=== PATIENT | male | born 1995 | race Caucasian/White ===

== ENCOUNTER 2016-08-12 21:11 | Emergency (ER) | payer OTHER ==
[~2016-08-12] VITALS: Ht 180.3 cm; Wt 131.7 kg
[~2016-08-12 21:11] MED LIST: DEXILANT60 MG PO; QUETIAPINE FUMA50 MG; SERTRALINE HCL100 MG PO; SINGULAIR10 MG PO; ZYRTEC10 M3 PO
[2016-08-12 22:04] LABS: HEMATOCRIT 47.4 % (38.0-50.0); MCH 26.6 PG (29.0-34.0); MCHC 32.9 G/DL (30.0-36.0); MCV 80.7 FL (86-99); MEAN PLAT.VOLUME 9.3 uM^3 (9.0-12.4); PLATELET COUNT 411 K/uL (156-360); RBC DIS.WIDTH-CV 12.1 % (11.8-14.6); RBC DIS.WIDTH-SD 35.3 % (39-53); RED BLOOD COUNT 5.87 M/uL (4.00-5.50); WHITE BLOOD COUNT 12.4 K/uL (4.1-10.2)
[2016-08-12 22:14] LABS: CHLORIDE 106 mEq/L (99-109); POTASSIUM 3.7 mEq/L (3.7-5.4); SODIUM 140 mEq/L (136-147)
[2016-08-12 22:16] LABS: GLUCOSE 93 mg/dL (70-99)
[2016-08-12 22:17] LABS: ANION GAP 12 MEQ/L (2-14)
[2016-08-12 22:19] LABS: SERUM ETHYL ALCOHOL < 10 mg/dL
[2016-08-12 22:20] LABS: GFR ESTIMATE (CALCULATED) > 59 mL/min/
[2016-08-12 22:22] LABS: UREA NITROGEN (BUN) 6 mg/dL (9-23)
[2016-08-12 22:23] LABS: SALICYLATE < 5.0 MG/DL (15-30)
[2016-08-12 22:49] LABS: AMPHETAMINE NEGATIVE (500 ng/mL); BARBITURATES NEGATIVE (200 ng/mL); BENZODIAZEPINES NEGATIVE (150 ng/mL); COCAINE NEGATIVE (150 ng/mL); INTERNAL CONTROLS VALID? YES; METHADONE NEGATIVE (200 ng/mL); METHAMPHETAMINE NEGATIVE (500 ng/mL); OPIATES (MORPHINE) NEGATIVE (100 ng/mL); OXYCODONE NEGATIVE (100 ng/mL); PHENCYCLIDINE NEGATIVE (25 ng/mL); PROPOXYPHENE NEGATIVE (300 ng/mL); THC CANNABINOIDS NEGATIVE (50 ng/mL); TRICYCLIC ANTIDEPRESSANTS NEGATIVE (300 ng/mL)
[2016-08-13 01:58] VITALS: BP 141/101
== END 2016-08-13 02:01 | disposition home or self-care (01) ==
LOC: EME 21:11
PROVIDERS: Emergency Medicine
DX: F32.9 Major depressive disorder, single episode, unspecified (principal); F41.9 Anxiety disorder, unspecified
CPT/HCPCS: 80048; 85027; 90839; 99281; 99285; G0480